=== PATIENT | female | born 1965 | race Asian ===

== ENCOUNTER 2018-03-25 06:14 | Day surgery (SDC) | payer OTHER ==
[2018-03-25] MEDS ORDERED: ceFAZolin 3 GM/20 ML SYRINGE ONE (06:38)
[2018-03-25] MEDS ORDERED: LACTATED RINGERS 1,000 ML IV ONE ×2 (06:42→09:00)
[2018-03-25] MEDS ORDERED: BUPIVACAINE 0.5%-EPI 1:200000 PF 30 ML VIAL ONE (07:28)
[2018-03-25] MEDS ORDERED: ceFAZolin 2 GM/50 ML 2 GM/50 ML BAG IV ONE (07:44)
[2018-03-25] MEDS ORDERED: BUPIVACAINE 0.5%-EPI 1:200000 PF 30 ML VIAL SUBQ ONE ×2 (08:20→09:18)
[2018-03-25] MEDS ORDERED: ePHEDrine 50 MG/ML VIAL IVP ONE (08:43)
[2018-03-25] MEDS ORDERED: MIDAZOLAM 2 MG/2 ML VIAL IVP ONE (08:43)
[2018-03-25] MEDS ORDERED: fentaNYL 100 MCG/2 ML VIAL IVP ONE (08:43)
[2018-03-25] MEDS ORDERED: PROPOFOL 200 MG/20 ML VIAL IVP ONE (08:43)
[2018-03-25] MEDS ORDERED: ONDANSETRON 4 MG/2 ML VIAL IVP ONE (08:43)
[2018-03-25] MEDS ORDERED: DEXAMETHASONE 4 MG/ML VIAL IVP ONE (08:43)
[2018-03-25] MEDS: fentaNYL 100 MCG/2 ML VIAL ONE ×3 (09:45→10:13)
--- NOTE | 2018-03-25 09:53 | OPERATIVE REPORT ---
Operative Report - General Procedure Date: 03/25/18 Planned Procedure: Excision RIGHT axillary mass (lipoma suspected) Pre-Op Diagnosis: RIGHT axillary mass (lipoma suspected), extranumerary nipple Procedure Performed: Excision RIGHT axillary mass (lipoma suspected) Excision extranumerary nipple (RIGHT) Post Op Diagnosis: RIGHT axillary mass (lipoma suspected), extranumerary nipple - Procedure Note Primary Surgeon: Farhan Villarreal MD Anesthesia Provider: Ruba Tovar CRNA Anesthesia Technique: General LMA, Local (30 mL 1/2% marcaine with epinephrine) IV Fluids (mL): 1,300 Estimated Blood Loss (mL): 50 Complications: None. - Other Other Information/Narrative: OPERATIVE DESCRIPTION/REPORT: After verbal and written informed consent was obtained detailing the risks of infection, bleeding requiring transfusion with its risks, nerve injury, and , and after I met with the patient confirming the surgery and the site of the surgery, the patient was brought to the operative suite and placed supine on the operating table. I did not initial the operative site since it was defined by the localization wire. Great care was taken to avoid pressure points to prevent pressure necrosis or nerve injury. Monitoring devices were applied along with TEDs and pneumatic compressive stockings (to prevent DVT). The patient received preoperative antibiotics for surgical prophylaxis. Ruba Tovar CRNA sedated and anesthetized the patient for the entire procedure. The patient was prepped and draped in the usual sterile manner. A "time in" then confirmed that the patient was identified with 3 identifiers ( name, date and medical record number), the history and physical was in the chart, the signed consent confirming the procedure was in the chart, the patient was in the correct position, the aforementioned prophylactic measures were in place or given, we had the correct personnel and equipment to complete the procedure and that anesthesia, surgery and nursing were given an opportunity to express any concerns. With the agreement of everyone in the room , we proceeded with the operation. An elliptial incision was made excising the RIGHT extranumerary nipple and the nipple was sent for pathologic evaluation. The dissection proceeded deeper to the mass. Unfortunately, the mass was located posterior and superior to the axillary vein. The axillary vein was carefully retracted superiorly and the capsule of the lipoma was incised using Bovie electrocautery. When the cautery caused muscle groups to fire I switched to dissection with Metzenbaum scissors and Schnitz. I dissected this superiorly taking care to stay on the lipoma to decrease the likelihood of injury to the surrounding tissues. Traction and countertraction as well as some blunt dissection staying on the surface of the lipoma allowed me to dissect down to a point of attachment which I was able to release with gentle traction. The lipoma came out intact and was sent for pathologic evaluation. As the retraction on the axillary vein was released it was evident that a small branch of the axillary vein was bleeding. I stopped this with the placement of a medium clip. The incision was injected deeply and superficially with 1/2% Marcaine with epinephrine for pain control. Copious water lavage was used to remove any debris, and superficial hemostasis was obtained with Bovie electrocautery. The subcutaneous tissue was approximated using an interrupted 2-0 Vicryl and the skin incision was approximated with 4-0 Monocryl in a running subcuticular manner. The prep was washed off and benzoin and steristrips were placed on the incision. At this point a time out was performed that confirmed that all the counts were correct, the procedure that was performed, the blood loss, the urine output, the IV fluids administered, and the patients condition. Dressings were applied. Having tolerated the procedure well, the patient was subsequently extubated and taken to recovery room in good and stable condition. The patient's motor and sensory function to her right hand and arm was tested in PACU and noted to be intact.
[2018-03-25] MEDS ORDERED: oxyCOD/ACETAMIN 5 MG/325 MG TABLET PO ONE (10:54)
[2018-03-25 10:55] VITALS: BP 111/75
== END 2018-03-25 06:15 | disposition home or self-care (01) ==
LOC: SDS 06:14
PROVIDERS: ATTEND Surgery
PROC: 0JB40ZZ Excision of Right Neck Subcutaneous Tissue and Fascia, Open Approach (ICD-10-PCS; 2018-03-25)
PROC: 0HBW0ZZ Excision of Right Nipple, Open Approach (ICD-10-PCS; principal; 2018-03-25 07:30)
DX: Q83.3 Accessory nipple (principal); R22.2 Localized swelling, mass and lump, trunk; L76.22 Postprocedural hemorrhage of skin and subcutaneous tissue following other procedure; J45.909 Unspecified asthma, uncomplicated
CPT/HCPCS: 19120; 21552; 99283; A9270; J0690; J7120; 88302; 88304; 99282

== ENCOUNTER 2018-03-25 12:40 | Emergency (ER) | payer OTHER ==
[2018-03-25 12:54] VITALS: BP 123/86
--- NOTE | 2018-03-25 13:12 | ED Physician Documentation ---
PD HPI WOUND RECHECK - Stated complaint Stated Complaint: post op bleeding - Chief complaint Chief Complaint: Wound - Histroy obtained from History obtained from: Patient - History of Present Illness Location: Chest (right upper chest) Associated symptoms: No: Fever, Redness, Drainage Similar symptoms before: Has not had sx before Recently seen: Surgery (had lipoma removal today and was doing okay at time of discharge, then with some bleeding from site (bandage stained) when at home. Called Dr. Villarreal and directed to meet him in the ER.) Review of Systems Constitutional: denies: Fever Neurologic: denies: Generalized weakness, Near syncope, Altered mental status PD PAST MEDICAL HISTORY - Past Medical History Past Medical History: Yes Cardiovascular: None Respiratory: Asthma GI: None : None HEENT: Chronic vision loss Psych: Depression, Anxiety Musculoskeletal: Other Derm: Other - Past Surgical History Past Surgical History: Yes /[employer]: section, Tubal ligation - Present Medications Home Medications: Ambulatory Orders Medication Instructions Recorded Confirmed #103/Iron Fumarate/FA 1 each PO DAILY 03/25/18 03/25/18 [ Tablet] - Allergies Allergies/Adverse Reactions: Allergies Allergy/AdvReac Type Severity Reaction Status Date / Time chicken derived Allergy Itching Verified 03/25/18 12:54 naproxen Allergy Unknown Verified 03/25/18 12:54 peanut Allergy Itching Verified 03/25/18 12:54 Penicillins Allergy Unknown Verified 03/25/18 12:54 shrimp Allergy Unknown Verified 03/25/18 12:54 - Social History Does the pt smoke?: No Smoking Status: Never smoker Does the pt have substance abuse?: No - POLST Patient has POLST: No PD ED PE NORMAL - Vitals Vital signs reviewed: Yes - General General: Alert and oriented X 3, No acute distress, Well developed/nourished - Respiratory Respiratory: Other (right upper chest near anterior axillary area with dressing with red blood staining. Not saturated. ) - Derm Derm: Normal color, Warm and dry - Neuro Neuro: Alert and oriented X 3, No motor deficit, Normal speech - Psych Psych: Normal mood Results - Vitals Vitals: Oxygen O2 Source Room air PD MEDICAL DECISION MAKING - ED course Complexity details: considered differential (I did talk with patient and , but they were satisfied with Dr. Villarreal evaluation in the ED. No further care needed but to ensure rebandaging by nursing. ), d/w patient, d/w technical services consultant (Dr. Smalls was in ED just prior to patient arrival and he went to see the patient as soon as in a room. ) Departure - Departure Disposition: 01 Home, Self Care Clinical Impression: Post-op bleeding Qualifiers: Surgical complication system/body Area: skin Procedure type: non-dermatologic Qualified Code(s): L76.22 - Postprocedural hemorrhage of skin and subcutaneous tissue following other procedure Condition: Stable Record reviewed to determine appropriate education?: Yes Follow-Up: Farhan Villarreal MD [Provider Admit Priv/Credential] - Comments: Keep the dressing and place and some pressure to the area. Recheck if bleeding recurs or call Dr. Villarreal if just mild. Discharge Date/Time: 03/25/18 15:10
== END 2018-03-25 15:10 | disposition home or self-care (01) ==
LOC: ED 12:40
DX: L76.22 Postprocedural hemorrhage of skin and subcutaneous tissue following other procedure (principal); J45.909 Unspecified asthma, uncomplicated
CPT/HCPCS: 99283

== ENCOUNTER 2023-12-05 20:39 | Outpatient (CLI) | payer OTHER ==
[2023-12-05 21:10] LABS: CALCIUM 9.2 mg/dL (8.5-10.3); CREATININE 0.6 mg/dL (0.6-1.3); POTASSIUM 3.8 mmol/L (3.5-4.5)
== END 2023-12-05 20:40 | disposition home or self-care (01) ==
LOC: LAB 20:39
PROVIDERS: ATTEND Family Medicine
DX: R05.1 Acute cough (principal)
CPT/HCPCS: 36415; 80048

== ENCOUNTER 2023-12-05 20:42 | Outpatient (CLI) | payer OTHER ==
--- NOTE | 2023-12-06 16:46 | XRAY Report ---
PROCEDURE: Chest 2V INDICATIONS: ACUTE COUGH TECHNIQUE: 2 views of the chest were acquired. COMPARISON: None. FINDINGS: Surgical changes and devices: None. Lungs and pleura: Slight appearance of increased interstitial prominence at the bases. Mediastinum: Mediastinal contours appear normal. Heart size is normal. Bones and chest wall: No suspicious bony lesions. Overlying soft tissues appear unremarkable. IMPRESSION: Slight bibasilar interstitial prominence. This could represent dependent changes versus development o f pneumonia. Reviewed by: Maryann Dillon MD on 12/06/2023 4:45 PM PST Approved by: Maryann Dillon MD on 12/06/2023 4:45 PM PST Station ID: [id number]
== END 2023-12-05 20:43 | disposition home or self-care (01) ==
LOC: DI 20:42
PROVIDERS: ATTEND Family Medicine
DX: R05.1 Acute cough (principal); U07.1 COVID-19
CPT/HCPCS: 36415; 80048